=== PATIENT | female | born 2000 | race Caucasian/White ===

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

== ENCOUNTER 2021-11-20 15:15 | Inpatient (IN) | payer OTHER ==
[2021-11-20] MEDS ORDERED: DEXTROSE 5%-LACTATED RINGERS 500 ML IV SCH ×3 (17:45→19:45)
[2021-11-20] MEDS ORDERED: BETAMET ACET/BETAMET NA PH 30 MG/5 ML VIAL ONE (18:14)
[2021-11-20] MEDS ORDERED: BETAMET ACET/BETAMET NA PH 30 MG/5 ML VIAL IM ONE (18:16)
[2021-11-20 18:22] VITALS: BMI 23.0
[2021-11-20 19:10] LABS: BASO % 0.3 % (0-2.0); EOS % 0.8 % (0-4.5); HEMATOCRIT 36.4 % (32.4-45.2); HEMOGLOBIN 12.1 GM/dL (10.7-15.3); LYMPH % 13.1 % (8-40); MCH 29.6 pg (25.7-33.7); MCHC 33.1 g/dl (32.0-36.0); MEAN CELL VOLUME 89.4 fl (80-96); MEAN PLT VOLUME 9.2 fl (7.5-11.1); MONO % 4.4 % (3.8-10.2); NEUT % 81.4 % (42.8-82.8); PLATELET COUNT 209 10^3/uL (134-434); RBC 4.08 M/mm3 (3.60-5.2); RDW 13.2 % (11.6-15.6); WHITE BLOOD COUNT 11.7 K/mm3 (4.0-10.0)
[2021-11-20 19:16] LABS: INR 1.01 (0.83-1.09); PROTHROMBIN TIME (PATIENT) 11.6 SEC (9.7-13.0)
[2021-11-20 19:18] LABS: ACTIVATED PTT 31.3 SECONDS (25.2-36.5)
[2021-11-20 19:34] LABS: CALCIUM 9.5 mg/dL (8.5-10.1)
[2021-11-20 19:35] LABS: ALBUMIN 3.5 g/dl (3.4-5.0); BLOOD UREA NITROGEN 5.5 mg/dL (7-18)
[2021-11-20 19:38] LABS: CREATININE 0.5 mg/dL (0.55-1.3)
[2021-11-20 19:39] LABS: BILIRUBIN,TOTAL 0.5 mg/dL (0.2-1)
[2021-11-20 20:00] LABS: SYPHILIS W/ RPR CONF NON-REACTIVE (NONREACTIVE)
[2021-11-20 20:28] LABS: HIV INTERPRETATION NEGATIVE (NEGATIVE)
[2021-11-20 20:57] VITALS: TEMP 98.8
[2021-11-20 21:16] VITALS: BP 135/73; PULSE 83
[2021-11-21] MEDS ORDERED: BETAMET ACET/BETAMET NA PH 30 MG/5 ML VIAL IM ONE (18:16)
== END 2021-11-20 21:15 | disposition short-term general hospital (02) | DRG 566 ==
LOC: JDEL 15:15 → JLDR 18:00
PROVIDERS: ADMIT Obstetrics & Gynecology; ATTEND Obstetrics & Gynecology
DX: O41.03X0 Oligohydramnios, third trimester, not applicable or unspecified (principal); O36.5930 Maternal care for other known or suspected poor fetal growth, third trimester, not applicable or unspecified; O76 Abnormality in fetal heart rate and rhythm complicating labor and delivery; Z3A.28 28 weeks gestation of pregnancy; E86.0 Dehydration
CPT/HCPCS: 0241U-QW; 36415; 76801-TC; 76817-TC; 80053; 85025; 85610; 85730; 86780; 86850; 86900; 86901; 87389; 87807; 96372; C9803-CS; U0003; U0005